=== PATIENT | female | born 1985 | race African-American/Black ===

== ENCOUNTER → 2020-07-09 13:03 | Outpatient (BNVA) | payer MEDICAID, SELFPAY | PROVIDERS: PCP Internal Medicine; Visit Provider Surgery | DX: Z01.818 Encounter for other preprocedural examination (principal); E66.01 Morbid (severe) obesity due to excess calories; Z68.44 Body mass index [BMI] 60.0-69.9, adult; R06.02 Shortness of breath | CPT/HCPCS: 99212 ==

== ENCOUNTER → 2020-07-27 08:08 | Outpatient (BNVA) | payer MEDICAID, SELFPAY | PROVIDERS: PCP Internal Medicine; Visit Provider Surgery ==

== ENCOUNTER → 2020-08-10 09:01 | Outpatient (BNVA) | payer OTHER, SELFPAY | PROVIDERS: PCP Internal Medicine; Visit Provider Dietitian, Registered | DX: E66.9 Obesity, unspecified (principal); Z68.44 Body mass index [BMI] 60.0-69.9, adult | CPT/HCPCS: 97802 ==

== ENCOUNTER 2020-08-11 10:15 | Outpatient (REF) | payer OTHER, SELFPAY ==
[2020-08-12 14:31] LABS: H Pylori Breath Test NOT DETECTED (NOT DETECTED)
== END 2020-08-11 10:16 | disposition home or self-care (01) ==
LOC: HO.LNP 10:15
PROVIDERS: Surgery; PCP Internal Medicine; Visit Provider Physician Assistant
DX: Z01.818 Encounter for other preprocedural examination (principal); Z11.0 Encounter for screening for intestinal infectious diseases
CPT/HCPCS: 83013; 99211

== ENCOUNTER 2020-09-07 09:40 | Outpatient (REF) | payer OTHER, SELFPAY ==
--- NOTE | ~2020-09-07 | XR_ITS ---
EXAMINATION: XR CHEST CLINICAL INFORMATION: Shortness of breath COMPARISON: None TECHNIQUE: 2 views of the chest were obtained. FINDINGS: There is no evidence of acute parenchymal disease, pneumothorax, or pleural effusion. Heart upper limits of normal in size. No evidence of pulmonary edema. XR/XR chest 2V IMPRESSION: No acute disease.
--- NOTE | 2020-09-07 09:49 | ECG_ITS ---
Test Reason : SOB R06.02 Blood Pressure : / mmHG Vent. Rate : 053 BPM Atrial Rate : 053 BPM P-R Int : 148 ms QRS Dur : 084 ms QT Int : 472 ms P-R-T Axes : 050 068 029 degrees QTc Int : 442 ms Sinus bradycardia with sinus arrhythmia Otherwise normal ECG No previous ECGs available Referred By: Keerthi Braun Electronically Signed By:ARVIN DIAZ MD
[2020-09-07 10:30] LABS: MANUAL DIFF FLAG NO
[2020-09-07 10:40] LABS: Basophils Percent Auto 0.3 % (0-2); Eosinophils Absolute Auto 0.1 X10*3/uL (0.0-0.4); Eosinophils Percent Auto 1.8 % (0-4); Hematocrit 37.3 % (37-47); Hemoglobin 11.9 g/dl (12.0-16.0); Imm Gran Abs Auto 0.02 X10*3/uL (0.00-0.03); Imm Gran Pct Auto 0.3 % (0.0-0.4); Lymphocytes Absolute Auto 2.3 X10*3/uL (1.2-4.9); Lymphocytes Percent Auto 30.4 % (20-40); Mean Corpuscular HGB Conc 31.9 g/dl (31.0-35.0); Mean Corpuscular Volume 87.8 fL (80-98); Mean Platelet Volume 10.8 fL (9.4-12.3); Monocytes Absolute Auto 0.4 X10*3/uL (0.1-1.2); Monocytes Percent Auto 5.1 % (2-11); Neutrophils Absolute Auto 4.7 X10*3/uL (2.0-8.3); Neutrophils Percent Auto 62.1 % (45-73); Platelet Count 236 X10*3/uL (160-400); Red Blood Count 4.25 X10*6/uL (4.20-5.50); Red Cell Distribution Width 13.6 % (11.0-16.0); White Blood Count 7.6 X10*3/uL (4.8-10.8)
[2020-09-07 10:54] LABS: Estimated Average Glucose 120 mg/dL; Hemoglobin A1c % 5.8 %
[2020-09-07 11:17] LABS: Alanine Aminotransferase 16 U/L (0-31); Alkaline Phosphatase 72 U/L (39-117); Anion Gap 12 (12-20); Aspartate Amino Transferase 15 U/L (5-31); Bilirubin Total 0.7 mg/dL (0.0-1.0); Blood Urea Nitrogen 16 mg/dL (9-16); C Reactive Protein 1.09 mg/dL (< or = 0.50); Calcium 9.1 mg/dL (8.4-10.2); Carbon Dioxide 24 mmol/L (22-29); Chloride 108 mmol/L (96-108); Cholesterol 175 mg/dL; Estimated Glomerular Filt Rate > 60; Glucose Fasting 100 mg/dL (60-99); HDL Cholesterol 60 mg/dL; Iron 89 mcg/dL (30-160); LDL Cholesterol Calculated 98 mg/dl; Percent Iron Saturation 29 % (15-50); Sodium 140 mmol/L (135-145); Total Iron Binding Capacity 303 mcg/dL (228-428); Total Protein 6.9 g/dL (6.5-8.0); Triglycerides 87 mg/dL; Unsaturated Iron Binding 214 ug/dL
[2020-09-07 11:39] LABS: Thyroid Stimulating Hormone 0.71 uIU/mL (0.32-4.0)
[2020-09-07 11:55] LABS: Vitamin B12 395 pg/mL (200-900)
[2020-09-08 13:12] LABS: Calcium (PTHI) 9.2 mg/dL (8.6-10.2); PTHI 30 pg/mL (14-64)
[2020-09-10 05:52] LABS: Zinc 83 mcg/dL (60-130)
[2020-09-12 03:32] LABS: Vitamin A 42 mcg/dL (38-98)
[2020-09-12 13:12] LABS: Vitamin B1 9 nmol/L (8-30)
== END 2020-09-07 09:41 | disposition home or self-care (01) ==
LOC: HO.LAB 09:40
PROVIDERS: Visit Provider Surgery
DX: Z01.818 Encounter for other preprocedural examination (principal); K91.2 Postsurgical malabsorption, not elsewhere classified; E55.9 Vitamin D deficiency, unspecified; R06.02 Shortness of breath; Z90.3 Acquired absence of stomach [part of]
CPT/HCPCS: 36415; 71046; 80053; 80061; 82306; 82607; 83036; 83540; 83970; 84425; 84443; 84590; 84630; 85025; 86140; 93005

== ENCOUNTER → 2020-09-15 11:00 | Outpatient (BNVA) | payer OTHER, SELFPAY | PROVIDERS: Visit Provider Surgery ==

== ENCOUNTER → 2020-11-09 08:15 | Outpatient (BNVA) | payer OTHER, SELFPAY | PROVIDERS: PCP Internal Medicine; Visit Provider Physician Assistant ==

== ENCOUNTER → 2020-11-30 10:02 | Outpatient (BNVA) | payer OTHER, SELFPAY | PROVIDERS: PCP Internal Medicine; Referring Provider Internal Medicine; Visit Provider Surgery ==

== ENCOUNTER → 2021-01-22 11:28 | Outpatient (BNVA) | payer OTHER, SELFPAY | PROVIDERS: PCP Internal Medicine; Visit Provider Surgery | DX: E66.01 Morbid (severe) obesity due to excess calories (principal); Z68.44 Body mass index [BMI] 60.0-69.9, adult | CPT/HCPCS: 99212 ==

== ENCOUNTER → 2021-03-05 10:29 | Outpatient (BNVA) | payer OTHER, SELFPAY | PROVIDERS: PCP Internal Medicine; Visit Provider Physician Assistant Surgical ==

== ENCOUNTER → 2021-03-31 13:08 | Outpatient (BNVA) | payer OTHER, SELFPAY | PROVIDERS: PCP Internal Medicine; Visit Provider Physician Assistant Surgical ==

== ENCOUNTER → 2021-05-17 08:03 | Outpatient (BNVA) | payer OTHER, SELFPAY | PROVIDERS: PCP Internal Medicine; Visit Provider Physician Assistant Surgical ==

== ENCOUNTER → 2021-07-15 10:02 | Outpatient (BNVA) | payer OTHER, SELFPAY | PROVIDERS: PCP Internal Medicine; Visit Provider Physician Assistant Surgical | DX: E66.01 Morbid (severe) obesity due to excess calories (principal); Z68.44 Body mass index [BMI] 60.0-69.9, adult | CPT/HCPCS: 99212 ==